=== PATIENT | female | born 1950 | race Caucasian/White ===

== ENCOUNTER 2017-03-02 12:39 | Emergency (ER) | payer MEDICARE ==
[~2017-03-02] VITALS: Ht 160 cm; Wt 88.0 kg
[2017-03-02 12:44] VITALS: BP 154/97
[2017-03-02] MEDS ORDERED: HYDROcodone/APAP 5/325 TABLET PO ONE (13:30)
[2017-03-02] MEDS ORDERED: HYDROcodone/APAP 5/325 TABLET ONE (14:28)
== END 2017-03-02 16:02 | disposition home or self-care (01) ==
LOC: ED 15:56
DX: S70.01XA Contusion of right hip, initial encounter (principal); I25.2 Old myocardial infarction; F32.9 Major depressive disorder, single episode, unspecified; Z86.73 Personal history of transient ischemic attack (TIA), and cerebral infarction without residual deficits; W01.0XXA Fall on same level from slipping, tripping and stumbling without subsequent striking against object, initial encounter; Y93.89 Activity, other specified; Y92.89 Other specified places as the place of occurrence of the external cause; Y99.8 Other external cause status
CPT/HCPCS: 99284

== ENCOUNTER 2017-11-06 16:19 | Inpatient (IN) | payer MEDICARE ==
[~2017-11-06] VITALS: Ht 157.5 cm; Wt 93.3 kg
[~2017-11-06 16:19] MED LIST: ATOR20TA PO; ATOR20TA9 PO; BUSP10TA PO; CARV3.122 PO; CELE100C PO; CLOP75TA PO; CLOP75TA52 PO; CYCL5TAB PO; ESOM40CA PO; FLUT1DIS3 INH; FURO-93 PO; LISI5TAB7 PO; METO25TA91 PO; RIVA20TA PO; TOPI25CA PO; VENL150C PO
[2017-11-06] MEDS ORDERED: SODIUM CHLORIDE FLUSH 10ML SYR IVF ONE (18:00)
[2017-11-06 18:16] LABS: BASOPHILS # (AUTO) 0.02 x10^3/uL (0-0.1); BASOPHILS % (AUTO) 0 % (0-1); EOSINOPHILS # (AUTO) 0.06 x10^3/uL (0-0.4); EOSINOPHILS % (AUTO) 1 % (1-7); LYMPHOCYTES # (AUTO) 0.82 x10^3/uL (1-3.4); LYMPHOCYTES % (AUTO) 13 % (22-44); MD NO; MEAN CORPUSCULAR HEMOGLOBIN 30.1 pg (27.0-34.8); MEAN CORPUSCULAR HGB CONC 33.1 g/dL (32.4-35.8); MEAN CORPUSCULAR VOLUME 90.9 fL (80-100); MEAN PLATELET VOLUME 8.8 fL (7.4-10.4); MONOCYTES # (AUTO) 0.35 x10^3/uL (0.2-0.8); MONOCYTES % (AUTO) 6 % (2-9); NEUTROPHILS % (AUTO) 80 % (42-75); PLATELET COUNT 249 x10^3/uL (130-400); RED BLOOD COUNT 4.73 x10^6/uL (3.82-5.3); RED CELL DISTRIBUTION WIDTH 14.1 % (9.6-15.2)
[2017-11-06 18:17] LABS: ALBUMIN 3.3 g/dL (3.4-5.0); ANION GAP 7 mmol/L (5-15); CALCIUM 8.9 mg/dL (8.5-10.1); CHLORIDE 104 mmol/L (98-107); CREATININE 1.53 mg/dL (0.55-1.02)
[2017-11-06 18:21] LABS: TROPONIN I 0.048 ng/mL (0.000-0.045)
[2017-11-06] MEDS ORDERED: k-dur (18:32)
[2017-11-06] MEDS ORDERED: VENL150C PO (18:32)
[2017-11-06] MEDS ORDERED: TRAZ100T15 PO (18:32)
[2017-11-06] MEDS ORDERED: SODIUM CHLORIDE FLUSH 10ML SYR IVF PRN (20:00)
[2017-11-06] MEDS ORDERED: hydrALAzine 20 MG/ML, 1ML IVPush PRN (20:30)
[2017-11-06] MEDS ORDERED: NITROGLYCERIN 0.4 MG BOTTLE (25 TABS) SL PRN (20:30)
[2017-11-06] MEDS ORDERED: POLYETHYLENE GLYCOL 17 GM PACKET PO PRN (20:30)
[2017-11-06] MEDS ORDERED: BISACODYL 10 MG SUPP PR PRN (20:30)
[2017-11-06] MEDS ORDERED: ACETAMINOPHEN 325 MG TABLET PO PRN (20:30)
[2017-11-06] MEDS ORDERED: NITROGLYCERIN 0.4 MG/SPRAY SL PRN (20:30)
[2017-11-06] MEDS: FAMOTIDINE 20 MG TABLET PO SCH (21:00)
[2017-11-06 22:00] VITALS: BP 139/82
[2017-11-06] MEDS ORDERED: ATORVASTATIN 20 MG TABLET PO SCH (22:30)
[2017-11-06 22:34] LABS: TROPONIN I 0.054 ng/mL (0.000-0.045)
[2017-11-06] MEDS: CARVEDILOL 3.125 MG TABLET PO SCH (22:38)
[2017-11-06] MEDS ORDERED: BUSPIRONE 10 MG TABLET PO SCH (23:00)
[2017-11-06] MEDS ORDERED: TOPIRAMATE 25 MG TABLET PO SCH (23:00)
[2017-11-06] MEDS ORDERED: TOPIRAMATE 25 MG HOMEMEDPO SCH (23:00)
[2017-11-07 01:18] VITALS: BP 111/76
[2017-11-07 05:29] LABS: BASOPHILS # (AUTO) 0.01 x10^3/uL (0-0.1); BASOPHILS % (AUTO) 0 % (0-1); EOSINOPHILS # (AUTO) 0.07 x10^3/uL (0-0.4); EOSINOPHILS % (AUTO) 1 % (1-7); LYMPHOCYTES # (AUTO) 1.58 x10^3/uL (1-3.4); LYMPHOCYTES % (AUTO) 29 % (22-44); MD NO; MEAN CORPUSCULAR HEMOGLOBIN 30.2 pg (27.0-34.8); MEAN CORPUSCULAR HGB CONC 33.2 g/dL (32.4-35.8); MEAN CORPUSCULAR VOLUME 90.7 fL (80-100); MONOCYTES # (AUTO) 0.41 x10^3/uL (0.2-0.8); MONOCYTES % (AUTO) 7 % (2-9); NEUTROPHILS # (AUTO) 3.41 x10^3/uL (1.8-6.8); NEUTROPHILS % (AUTO) 62 % (42-75); PLATELET COUNT 216 x10^3/uL (130-400); RED BLOOD COUNT 4.29 x10^6/uL (3.82-5.3); RED CELL DISTRIBUTION WIDTH 13.9 % (9.6-15.2)
[2017-11-07 05:33] LABS: CHLORIDE 104 mmol/L (98-107)
[2017-11-07 05:53] LABS: ALANINE AMINOTRANSFERASE 79 U/L (12-78); ALBUMIN 2.9 g/dL (3.4-5.0); ALKALINE PHOSPHATASE 147 U/L (45-117); ANION GAP 9 mmol/L (5-15); BILIRUBIN,TOTAL 0.5 mg/dL (0.2-1.0); CALCIUM 8.3 mg/dL (8.5-10.1); CREATININE 1.36 mg/dL (0.55-1.02); TOTAL PROTEIN 6.3 g/dL (6.4-8.2)
[2017-11-07 07:38] VITALS: BP 97/68
[2017-11-07] MEDS ORDERED: BUSPIRONE 10 MG TABLET PO SCH ×2 (09:00→09:30)
[2017-11-07] MEDS ORDERED: FUROSEMIDE 10 MG/ML ORAL SOL PO SCH (09:00)
[2017-11-07] MEDS: FLUTICASONE/VILANTEROL 100-25MCG/INH INH SCH ×2 (09:00→09:38)
[2017-11-07] MEDS: FAMOTIDINE 20 MG TABLET PO SCH (09:37)
[2017-11-07] MEDS: CARVEDILOL 3.125 MG TABLET PO SCH (09:37)
[2017-11-07] MEDS ORDERED: TOPIRAMATE 25 MG TABLET PO SCH (10:00)
[2017-11-07] MEDS ORDERED: RIVAROXABAN 20 MG TABLET PO SCH (17:00)
== END 2017-11-07 14:06 | disposition home or self-care (01) | DRG 314 ==
LOC: ED 19:37 → EDIP 20:00 → 5SO 21:24
PROVIDERS: ADMIT Hospitalist; ATTEND Hospitalist
DX: I51.81 Takotsubo syndrome (principal); J96.20 Acute and chronic respiratory failure, unspecified whether with hypoxia or hypercapnia; N17.9 Acute kidney failure, unspecified; E46 Unspecified protein-calorie malnutrition; I48.91 Unspecified atrial fibrillation; E66.9 Obesity, unspecified; E78.5 Hyperlipidemia, unspecified; I10 Essential (primary) hypertension; I25.119 Atherosclerotic heart disease of native coronary artery with unspecified angina pectoris; I25.2 Old myocardial infarction; T45.515A Adverse effect of anticoagulants, initial encounter; Z86.73 Personal history of transient ischemic attack (TIA), and cerebral infarction without residual deficits; Z95.5 Presence of coronary angioplasty implant and graft; Z68.37 Body mass index [BMI] 37.0-37.9, adult; Y92.89 Other specified places as the place of occurrence of the external cause
CPT/HCPCS: 36415; 71045; 80048; 80053; 82040; 83735; 83880; 84484; 85025; 93005; 93970; 99285

== ENCOUNTER 2017-12-07 19:34 | Emergency (ER) | payer MEDICARE ==
[~2017-12-07] VITALS: Ht 157.5 cm; Wt 90.0 kg
[~2017-12-07 19:34] MED LIST changes: +TRAZ100T15 PO; +k-dur
[2017-12-07] MEDS ORDERED: SODIUM CHLORIDE FLUSH 10ML SYR IVF ONE ×2 (20:00→22:00)
[2017-12-07 20:47] LABS: BASOPHILS # (AUTO) 0.07 x10^3/uL (0-0.1); BASOPHILS % (AUTO) 1 % (0-1); EOSINOPHILS # (AUTO) 0.01 x10^3/uL (0-0.4); EOSINOPHILS % (AUTO) 0 % (1-7); LYMPHOCYTES # (AUTO) 1.01 x10^3/uL (1-3.4); LYMPHOCYTES % (AUTO) 14 % (22-44); MD NO; MEAN CORPUSCULAR HEMOGLOBIN 30.4 pg (27.0-34.8); MEAN CORPUSCULAR VOLUME 91.9 fL (80-100); MEAN PLATELET VOLUME 8.6 fL (7.4-10.4); MONOCYTES # (AUTO) 0.47 x10^3/uL (0.2-0.8); MONOCYTES % (AUTO) 7 % (2-9); NEUTROPHILS # (AUTO) 5.66 x10^3/uL (1.8-6.8); NEUTROPHILS % (AUTO) 78 % (42-75); PLATELET COUNT 267 x10^3/uL (130-400); RED BLOOD COUNT 4.92 x10^6/uL (3.82-5.3); RED CELL DISTRIBUTION WIDTH 14.4 % (9.6-15.2)
[2017-12-07 20:55] LABS: INTERNATIONAL NORMALIZED RATIO 0.97 (0.93-1.1)
[2017-12-07 20:59] LABS: ALANINE AMINOTRANSFERASE 26 U/L (12-78); ALBUMIN 3.4 g/dL (3.4-5.0); ANION GAP 10 mmol/L (5-15); CALCIUM 9.3 mg/dL (8.5-10.1); CHLORIDE 108 mmol/L (98-107); CREATININE 1.13 mg/dL (0.55-1.02)
[2017-12-07 21:01] LABS: ALKALINE PHOSPHATASE 126 U/L (45-117); BILIRUBIN,TOTAL 0.5 mg/dL (0.2-1.0); TOTAL PROTEIN 7.2 g/dL (6.4-8.2)
[2017-12-07] MEDS ORDERED: NAPR-685 PO (21:11)
[2017-12-07] MEDS ORDERED: VENL150C6 PO (21:13)
[2017-12-07] MEDS ORDERED: SODIUM CHLORIDE 0.9% 1,000ML IVBOLUS ONE (22:00)
[2017-12-07] MEDS ORDERED: ONDANSETRON ODT 8 MG ONE (22:49)
[2017-12-07] MEDS ORDERED: MAALOX/HYOSCYAMINE/LIDOCAINE 45 ML BTL ONE (22:49)
[2017-12-07] MEDS ORDERED: MAALOX/HYOSCYAMINE/LIDOCAINE 45 ML BTL PO ONE (23:00)
[2017-12-07] MEDS ORDERED: ONDANSETRON ODT 8 MG PO ONE (23:00)
[2017-12-08 00:56] LABS: CULTURE INDICATED? NO; MICROSCOPIC NOT IND
[2017-12-08 02:00] VITALS: BP 142/86
== END 2017-12-08 02:01 | disposition home or self-care (01) ==
LOC: ED 22:20
DX: E86.0 Dehydration (principal); R19.7 Diarrhea, unspecified; E78.5 Hyperlipidemia, unspecified; E83.39 Other disorders of phosphorus metabolism; I48.91 Unspecified atrial fibrillation; R11.2 Nausea with vomiting, unspecified
CPT/HCPCS: 36415; 80053; 81003; 83690; 85025; 85610; 85730; 96360; 99284; J7030; Q0162

== ENCOUNTER 2018-02-04 12:00 | Inpatient (IN) | payer MEDICARE ==
[~2018-02-04] VITALS: Ht 157.5 cm; Wt 94.1 kg
[~2018-02-04 12:00] MED LIST changes: +NAPR-685 PO; +VENL150C6 PO
[2018-02-04] MEDS ORDERED: SODIUM CHLORIDE FLUSH 10ML SYR IVF ONE (12:30)
[2018-02-04 12:34] LABS: ALBUMIN 3.2 g/dL (3.4-5.0); ANION GAP 5 mmol/L (5-15); CALCIUM 8.5 mg/dL (8.5-10.1); CHLORIDE 114 mmol/L (98-107); CREATININE 0.94 mg/dL (0.55-1.02)
[2018-02-04] MEDS ORDERED: TRAZ50TA18 PO (13:01)
[2018-02-04] MEDS ORDERED: CYCL-259 PO (13:03)
[2018-02-04 13:04] LABS: BASOPHILS # (AUTO) 0.02 x10^3/uL (0-0.1); BASOPHILS % (AUTO) 0 % (0-1); EOSINOPHILS # (AUTO) 0.12 x10^3/uL (0-0.4); EOSINOPHILS % (AUTO) 3 % (1-7); LYMPHOCYTES # (AUTO) 1.17 x10^3/uL (1-3.4); LYMPHOCYTES % (AUTO) 25 % (22-44); MD NO; MEAN CORPUSCULAR HEMOGLOBIN 29.8 pg (27.0-34.8); MEAN CORPUSCULAR VOLUME 90.5 fL (80-100); MEAN PLATELET VOLUME 8.8 fL (7.4-10.4); MONOCYTES # (AUTO) 0.34 x10^3/uL (0.2-0.8); MONOCYTES % (AUTO) 7 % (2-9); NEUTROPHILS # (AUTO) 3.11 x10^3/uL (1.8-6.8); NEUTROPHILS % (AUTO) 65 % (42-75); PLATELET COUNT 227 x10^3/uL (130-400); RED BLOOD COUNT 4.36 x10^6/uL (3.82-5.3); RED CELL DISTRIBUTION WIDTH 14.3 % (9.6-15.2)
[2018-02-04] MEDS ORDERED: CLON0.12 PO (13:04)
[2018-02-04 13:15] LABS: PROTHROMBIN TIME 10.3 Seconds (9.6-11.5)
[2018-02-04] MEDS ORDERED: SODIUM CHLORIDE FLUSH 10ML SYR IVF PRN (13:30)
[2018-02-04 16:29] VITALS: BP 142/79
[2018-02-04] MEDS ORDERED: [UNRECOGNIZED DRUG - REMARK] XX PRN ×2 (17:00)
[2018-02-04] MEDS ORDERED: CLONAZEPAM 0.125 MG HOMEMEDPO SCH (17:00)
[2018-02-04] MEDS ORDERED: hydrALAzine 20 MG/ML, 1ML IVPush PRN (17:00)
[2018-02-04] MEDS ORDERED: RIVAROXABAN 20 MG TABLET PO SCH (17:00)
[2018-02-04] MEDS ORDERED: LABETALOL 5MG/ML, 20ML IVPush PRN (17:00)
[2018-02-04] MEDS ORDERED: ACETAMINOPHEN 325 MG TABLET PO PRN (18:00)
[2018-02-04] MEDS ORDERED: ONDANSETRON 2MG/ML, 2ML IVPush PRN (18:00)
[2018-02-04] MEDS: BUSPIRONE 10 MG TABLET PO SCH (20:49)
[2018-02-04] MEDS: CARVEDILOL 3.125 MG TABLET PO SCH (20:49)
[2018-02-04] MEDS: TOPIRAMATE 25 MG TABLET PO SCH (20:49)
[2018-02-04] MEDS: CYCLOBENZAPRINE 10 MG TABLET PO SCH (20:50)
[2018-02-04] MEDS ORDERED: ATORVASTATIN 20 MG TABLET PO SCH (21:00)
[2018-02-04] MEDS ORDERED: TRAZODONE 50MG TABLET PO PRN (21:00)
[2018-02-04 21:59] VITALS: BP 138/55
[2018-02-04 22:00] VITALS: BP 122/78
[2018-02-05 02:04] VITALS: BP 152/66
[2018-02-05 05:44] LABS: BASOPHILS # (AUTO) 0.02 x10^3/uL (0-0.1); BASOPHILS % (AUTO) 0 % (0-1); EOSINOPHILS % (AUTO) 3 % (1-7); LYMPHOCYTES # (AUTO) 1.31 x10^3/uL (1-3.4); LYMPHOCYTES % (AUTO) 32 % (22-44); MD NO; MEAN CORPUSCULAR HEMOGLOBIN 29.7 pg (27.0-34.8); MEAN CORPUSCULAR HGB CONC 32.5 g/dL (32.4-35.8); MEAN CORPUSCULAR VOLUME 91.2 fL (80-100); MEAN PLATELET VOLUME 9.3 fL (7.4-10.4); MONOCYTES # (AUTO) 0.33 x10^3/uL (0.2-0.8); MONOCYTES % (AUTO) 8 % (2-9); NEUTROPHILS # (AUTO) 2.38 x10^3/uL (1.8-6.8); NEUTROPHILS % (AUTO) 58 % (42-75); PLATELET COUNT 210 x10^3/uL (130-400); RED BLOOD COUNT 4.03 x10^6/uL (3.82-5.3); RED CELL DISTRIBUTION WIDTH 14.3 % (9.6-15.2)
[2018-02-05 06:14] LABS: CHLORIDE 112 mmol/L (98-107)
[2018-02-05 06:23] LABS: ANION GAP 9 mmol/L (5-15); CALCIUM 8.6 mg/dL (8.5-10.1); CREATININE 1.01 mg/dL (0.55-1.02)
[2018-02-05] MEDS ORDERED: PANTOPROZOLE 40MG TABLET PO SCH (09:00)
[2018-02-05] MEDS ORDERED: LISINOPRIL 5 MG TABLET PO SCH (09:00)
[2018-02-05] MEDS ORDERED: VENLAFAXINE 75 MG CAP ER PO SCH (09:00)
[2018-02-05] MEDS ORDERED: FUROSEMIDE 20 MG TABLET PO SCH (09:00)
[2018-02-05] MEDS ORDERED: POTASSIUM CHLORIDE 20 MEQ TAB.ER.PRT PO SCH (09:00)
[2018-02-05 09:30] VITALS: BP 126/76
[2018-02-05] MEDS: TOPIRAMATE 25 MG TABLET PO SCH (10:07)
[2018-02-05] MEDS: BUSPIRONE 10 MG TABLET PO SCH (10:09)
[2018-02-05] MEDS: CYCLOBENZAPRINE 10 MG TABLET PO SCH (10:09)
[2018-02-05] MEDS: CARVEDILOL 3.125 MG TABLET PO SCH (10:10)
[2018-02-05] MEDS ORDERED: ATOR-2 PO (14:21)
[2018-02-05] MEDS ORDERED: ATORVASTATIN 40 MG TABLET PO SCH (21:00)
== END 2018-02-05 15:24 | disposition home health service (06) | DRG 65 ==
LOC: ED 13:33 → EDIP 14:01 → 4WST 16:05 → DCLOUNGE 02-05 15:09
PROVIDERS: ADMIT Internal Medicine; ATTEND Internal Medicine
DX: I63.9 Cerebral infarction, unspecified (principal); J96.10 Chronic respiratory failure, unspecified whether with hypoxia or hypercapnia; I10 Essential (primary) hypertension; E78.5 Hyperlipidemia, unspecified; I25.10 Atherosclerotic heart disease of native coronary artery without angina pectoris; I48.91 Unspecified atrial fibrillation; K21.9 Gastro-esophageal reflux disease without esophagitis; F32.9 Major depressive disorder, single episode, unspecified; E66.9 Obesity, unspecified; Z99.81 Dependence on supplemental oxygen; Z86.73 Personal history of transient ischemic attack (TIA), and cerebral infarction without residual deficits; Z68.37 Body mass index [BMI] 37.0-37.9, adult; Z88.6 Allergy status to analgesic agent; Z88.0 Allergy status to penicillin; I25.2 Old myocardial infarction; Z95.5 Presence of coronary angioplasty implant and graft; Z90.710 Acquired absence of both cervix and uterus; Z90.89 Acquired absence of other organs; Z79.899 Other long term (current) drug therapy; Z81.8 Family history of other mental and behavioral disorders; Z83.49 Family history of other endocrine, nutritional and metabolic diseases
CPT/HCPCS: 36415; 70450; 70551; 80048; 82040; 85025; 85610; 85730; 93005; 99285; J2405

== ENCOUNTER 2019-01-18 14:23 | Inpatient (IN) | payer MEDICARE ==
[~2019-01-18] VITALS: Ht 157.5 cm; Wt 90.8 kg
[~2019-01-18 14:23] MED LIST changes: +ATOR-2 PO; +ATOR20TA37 PO; -ATOR20TA9 PO; +CLON0.12 PO; +CYCL-259 PO; +TRAZ-137 PO; -TRAZ100T15 PO; +TRAZ50TA66 PO
[2019-01-18 15:25] LABS: INTERNATIONAL NORMALIZED RATIO 1.02 (0.93-1.1); PROTHROMBIN TIME 10.7 Seconds (9.6-11.5)
[2019-01-18 15:28] LABS: ALBUMIN 3.3 g/dL (3.4-5.0); ANION GAP 9 mmol/L (5-15); CALCIUM 8.7 mg/dL (8.5-10.1); CHLORIDE 114 mmol/L (98-107)
[2019-01-18 15:34] LABS: ALANINE AMINOTRANSFERASE 25 U/L (12-78); ALKALINE PHOSPHATASE 102 U/L (45-117); BILIRUBIN,TOTAL 0.6 mg/dL (0.2-1.0); CREATININE 1.32 mg/dL (0.55-1.02); TOTAL PROTEIN 6.7 g/dL (6.4-8.2); TROPONIN I < 0.015 ng/mL (0.000-0.045)
[2019-01-18 15:47] LABS: BASOPHILS % (AUTO) 0 % (0-1); EOSINOPHILS # (AUTO) 0.06 x10^3/uL (0-0.4); EOSINOPHILS % (AUTO) 1 % (1-7); LYMPHOCYTES # (AUTO) 0.74 x10^3/uL (1-3.4); LYMPHOCYTES % (AUTO) 9 % (22-44); MD NO; MEAN CORPUSCULAR HEMOGLOBIN 30.2 pg (27.0-34.8); MEAN CORPUSCULAR HGB CONC 32.2 g/dL (32.4-35.8); MEAN CORPUSCULAR VOLUME 93.8 fL (80-100); MEAN PLATELET VOLUME 8.2 fL (7.4-10.4); MONOCYTES # (AUTO) 0.39 x10^3/uL (0.2-0.8); MONOCYTES % (AUTO) 5 % (2-9); NEUTROPHILS # (AUTO) 6.98 x10^3/uL (1.8-6.8); NEUTROPHILS % (AUTO) 85 % (42-75); PLATELET COUNT 172 x10^3/uL (130-400); RED BLOOD COUNT 4.36 x10^6/uL (3.82-5.3); RED CELL DISTRIBUTION WIDTH 14.3 % (9.6-15.2)
--- NOTE | 2019-01-18 16:35 | NUR ---
PT BACK TO ROOM PT ARRIVES TO ED FROM CARDIOLOGY OFFICE. PT WAS SENT OVER DUE TO HER HAVING CP AND RIGHT ARM RADIATION. PT REPORTS THAT THIS IS HER 6TH [place]. PT REPORTS THAT HER SYMPTOMS STARTED RANDOMLY AND RIGHT SIDED AND THEN RADIATED TO BACK AND RIGHT ARM. PT DENIES TRUAMA. PT REPORTS REST HELPED. PT CONNECTED TO ALL MONITORS AND CALL LIGHT IN REACH. AWATING FOR FURTHER ORDERS.
--- NOTE | 2019-01-18 16:50 | NUR ---
[facility] ATTEMPTING IV AT THIS TIME.
--- NOTE | 2019-01-18 16:59 | NUR ---
REPORT RECEIVED FROM JACQUELINE RN. ASSUMED CARE OF PT AT THIS TIME. PT CURRENLTY RESTING ON GURNEY. NAD NOTED. SKIN PWD. RESP EVEN AND UNLABORED. CALL LIGHT WITHIN REACH. WILL CONT TO MONITOR PT.
[2019-01-18] MEDS ORDERED: POLYETHYLENE GLYCOL 17 GM PACKET PO PRN (18:30)
[2019-01-18] MEDS ORDERED: BISACODYL 10 MG SUPP PR PRN (18:30)
[2019-01-18] MEDS ORDERED: NITROGLYCERIN 0.4 MG BOTTLE (25 TABS) SL PRN (18:30)
[2019-01-18] MEDS ORDERED: TRAZODONE 50MG TABLET PO PRN (18:30)
[2019-01-18] MEDS ORDERED: morphine SULFATE 10 MG/ML, 1ML IVPush PRN (18:30)
[2019-01-18] MEDS ORDERED: HEPARIN 5,000 UNITS/ML, 1ML SQ SCH (18:30)
[2019-01-18] MEDS ORDERED: ONDANSETRON ODT 4 MG PO PRN (18:30)
--- NOTE | 2019-01-18 18:37 | NUR ---
REPORT TO TERESA SHERMAN ON TELE. PT CURRENTLY RESTIN SIS ELISEO Addendum: 01/18/19 at 1837 by MILLIE REPORT TO TERESA SHERMAN ON TELE. PT CURRENTLY RESTING ON ELISEO. NAD NOTED. SKIN PWD. RESP EVEN AND UNLABORED. PT CURRENTLY DENIES PAIN AT THIS TIME. AT BEDSIDE. CALL LIGHT WITHIN REACH. WILL CONT TO MONITOR PT.
[2019-01-18] MEDS ORDERED: LORA5TAB4 PO (19:47)
[2019-01-18 19:55] VITALS: BP 133/72
[2019-01-18] MEDS ORDERED: LORA10CA PO (20:04)
[2019-01-18] MEDS ORDERED: LORATADINE 10 MG TABLET PO PRN (21:00)
[2019-01-18] MEDS: RIVAROXABAN 15 MG TABLET PO SCH (21:10)
[2019-01-18] MEDS: ATORVASTATIN 80 MG TABLET PO SCH (21:10)
[2019-01-18] MEDS: CARVEDILOL 3.125 MG TABLET PO SCH (21:11)
[2019-01-18] MEDS: BUSPIRONE 10 MG TABLET PO SCH (21:11)
[2019-01-18] MEDS: TOPIRAMATE 25 MG TABLET PO SCH (21:11)
[2019-01-18] MEDS: SODIUM CHLORIDE FLUSH 10ML SYR IVF SCH (21:17)
[2019-01-18] MEDS: CYCLOBENZAPRINE 10 MG TABLET PO SCH (21:17)
[2019-01-18 22:15] LABS: TROPONIN I < 0.015 ng/mL (0.000-0.045)
[2019-01-19 01:59] VITALS: BP 108/69
[2019-01-19 03:32] LABS: BASOPHILS # (AUTO) 0.03 x10^3/uL (0-0.1); BASOPHILS % (AUTO) 0 % (0-1); EOSINOPHILS # (AUTO) 0.04 x10^3/uL (0-0.4); EOSINOPHILS % (AUTO) 1 % (1-7); LYMPHOCYTES # (AUTO) 0.85 x10^3/uL (1-3.4); LYMPHOCYTES % (AUTO) 10 % (22-44); MD NO; MEAN CORPUSCULAR HEMOGLOBIN 29.9 pg (27.0-34.8); MEAN CORPUSCULAR HGB CONC 31.9 g/dL (32.4-35.8); MEAN CORPUSCULAR VOLUME 93.8 fL (80-100); MONOCYTES # (AUTO) 0.47 x10^3/uL (0.2-0.8); MONOCYTES % (AUTO) 6 % (2-9); NEUTROPHILS # (AUTO) 7.08 x10^3/uL (1.8-6.8); NEUTROPHILS % (AUTO) 84 % (42-75); PLATELET COUNT 188 x10^3/uL (130-400); RED CELL DISTRIBUTION WIDTH 14.1 % (9.6-15.2)
[2019-01-19 03:45] LABS: ALANINE AMINOTRANSFERASE 25 U/L (12-78); ANION GAP 9 mmol/L (5-15); CALCIUM 8.6 mg/dL (8.5-10.1); CHLORIDE 113 mmol/L (98-107); CREATININE 1.15 mg/dL (0.55-1.02)
[2019-01-19 03:49] LABS: ALKALINE PHOSPHATASE 106 U/L (45-117); BILIRUBIN,TOTAL 0.6 mg/dL (0.2-1.0); TOTAL PROTEIN 5.9 g/dL (6.4-8.2); TROPONIN I < 0.015 ng/mL (0.000-0.045)
[2019-01-19] MEDS ORDERED: ALBUTEROL SULFATE 2.5 MG/3 ML ONE (05:22)
[2019-01-19] MEDS ORDERED: ALBUTEROL SULFATE 2.5 MG/3 ML NPPB PRN (05:30)
[2019-01-19] MEDS ORDERED: PANTOPROZOLE 40MG TABLET PO SCH (06:00)
[2019-01-19 07:45] VITALS: BP 106/72
[2019-01-19] MEDS: VENLAFAXINE 75 MG CAP ER PO SCH (08:40)
[2019-01-19] MEDS: CARVEDILOL 3.125 MG TABLET PO SCH ×2 (08:40→20:29)
[2019-01-19] MEDS: BUSPIRONE 10 MG TABLET PO SCH ×2 (08:40→20:29)
[2019-01-19] MEDS: FUROSEMIDE 20 MG TABLET PO SCH (08:40)
[2019-01-19] MEDS: POTASSIUM CHLORIDE 20 MEQ TAB.ER.PRT PO SCH (08:40)
[2019-01-19] MEDS ORDERED: REGADENOSON 0.4 MG/5 ML SYRINGE ONE (08:41)
[2019-01-19] MEDS: CYCLOBENZAPRINE 10 MG TABLET PO SCH ×3 (08:41→20:30)
[2019-01-19] MEDS: LISINOPRIL 5 MG TABLET PO SCH (08:41)
[2019-01-19] MEDS: SODIUM CHLORIDE FLUSH 10ML SYR IVF SCH ×2 (08:41→20:29)
[2019-01-19] MEDS: SENNA/DOCUSATE TABLET PO SCH (08:41)
[2019-01-19] MEDS: TOPIRAMATE 25 MG TABLET PO SCH ×2 (08:47→20:31)
[2019-01-19] MEDS ORDERED: FUROSEMIDE 20 MG/2 ML IV ONE (13:30)
[2019-01-19 14:00] VITALS: BP 104/70
[2019-01-19] MEDS ORDERED: CALCIUM CARBONATE 500 MG TAB.CHEW PO PRN (14:00)
[2019-01-19] MEDS ORDERED: MAALOX/HYOSCYAMINE/LIDOCAINE 45 ML BTL PO PRN (14:00)
[2019-01-19] MEDS: GUAIFENESIN 200 MG TABLET PO SCH ×2 (16:28→20:31)
[2019-01-19] MEDS: RIVAROXABAN 15 MG TABLET PO SCH (17:27)
[2019-01-19 19:32] VITALS: BP 106/67
[2019-01-19] MEDS: ATORVASTATIN 80 MG TABLET PO SCH (20:30)
[2019-01-19] MEDS: PANTOPROZOLE 40MG TABLET PO SCH (20:31)
[2019-01-20 01:37] VITALS: BP 100/67
[2019-01-20] MEDS: GUAIFENESIN 200 MG TABLET PO SCH (05:43)
[2019-01-20 06:25] LABS: ANION GAP 7 mmol/L (5-15); CALCIUM 8.8 mg/dL (8.5-10.1); CHLORIDE 109 mmol/L (98-107); CREATININE 1.26 mg/dL (0.55-1.02)
[2019-01-20 06:28] LABS: BASOPHILS # (AUTO) 0.02 x10^3/uL (0-0.1); BASOPHILS % (AUTO) 0 % (0-1); EOSINOPHILS # (AUTO) 0.14 x10^3/uL (0-0.4); EOSINOPHILS % (AUTO) 2 % (1-7); LYMPHOCYTES % (AUTO) 11 % (22-44); MD NO; MEAN CORPUSCULAR HEMOGLOBIN 29.4 pg (27.0-34.8); MEAN CORPUSCULAR HGB CONC 31.9 g/dL (32.4-35.8); MEAN CORPUSCULAR VOLUME 92.1 fL (80-100); MEAN PLATELET VOLUME 7.8 fL (7.4-10.4); MONOCYTES # (AUTO) 0.37 x10^3/uL (0.2-0.8); MONOCYTES % (AUTO) 6 % (2-9); NEUTROPHILS # (AUTO) 4.92 x10^3/uL (1.8-6.8); NEUTROPHILS % (AUTO) 80 % (42-75); PLATELET COUNT 158 x10^3/uL (130-400); RED BLOOD COUNT 3.98 x10^6/uL (3.82-5.3); RED CELL DISTRIBUTION WIDTH 14.2 % (9.6-15.2)
[2019-01-20 08:13] VITALS: BP 112/70
[2019-01-20] MEDS: VENLAFAXINE 75 MG CAP ER PO SCH (08:20)
[2019-01-20] MEDS: PANTOPROZOLE 40MG TABLET PO SCH ×2 (08:21→20:02)
[2019-01-20] MEDS: CARVEDILOL 3.125 MG TABLET PO SCH ×2 (08:24→20:03)
[2019-01-20] MEDS: TOPIRAMATE 25 MG TABLET PO SCH ×2 (08:24→20:03)
[2019-01-20] MEDS: BUSPIRONE 10 MG TABLET PO SCH ×2 (08:25→20:02)
[2019-01-20] MEDS: FUROSEMIDE 20 MG TABLET PO SCH (08:25)
[2019-01-20] MEDS: SODIUM CHLORIDE FLUSH 10ML SYR IVF SCH ×2 (08:25→20:03)
[2019-01-20] MEDS: CYCLOBENZAPRINE 10 MG TABLET PO SCH ×3 (08:25→20:01)
[2019-01-20] MEDS: LORATADINE 10 MG TABLET PO SCH (08:25)
[2019-01-20] MEDS: POTASSIUM CHLORIDE 20 MEQ TAB.ER.PRT PO SCH (08:25)
[2019-01-20] MEDS: LISINOPRIL 5 MG TABLET PO SCH (08:25)
[2019-01-20] MEDS: SENNA/DOCUSATE TABLET PO SCH (08:26)
[2019-01-20] MEDS: SODIUM CHLORIDE NASAL SPRAY 45ML BOTTLE NAS SCH ×2 (10:07→20:03)
[2019-01-20] MEDS: FLUTICASONE NASAL SPRAY 16GM NAS SCH ×2 (10:07→20:03)
[2019-01-20] MEDS: GUAIFENESIN ER 600 MG TABLET PO SCH ×2 (10:07→20:03)
[2019-01-20] MEDS: ACETAMINOPHEN 325 MG TABLET PO PRN (10:10)
[2019-01-20 14:12] VITALS: BP 103/69
[2019-01-20 18:44] VITALS: BP 98/63
[2019-01-20] MEDS: ATORVASTATIN 80 MG TABLET PO SCH (20:03)
[2019-01-20] MEDS: RIVAROXABAN 15 MG TABLET PO SCH (20:03)
[2019-01-20] MEDS: DOXYCYCLINE 100MG TABLET PO SCH (20:04)
[2019-01-21 01:46] VITALS: BP 107/69
[2019-01-21 06:00] LABS: BASOPHILS % (AUTO) 0 % (0-1); EOSINOPHILS # (AUTO) 0.01 x10^3/uL (0-0.4); EOSINOPHILS % (AUTO) 0 % (1-7); LYMPHOCYTES # (AUTO) 0.69 x10^3/uL (1-3.4); LYMPHOCYTES % (AUTO) 11 % (22-44); MD NO; MEAN CORPUSCULAR HEMOGLOBIN 30.5 pg (27.0-34.8); MEAN CORPUSCULAR HGB CONC 32.3 g/dL (32.4-35.8); MEAN CORPUSCULAR VOLUME 94.3 fL (80-100); MEAN PLATELET VOLUME 8.6 fL (7.4-10.4); MONOCYTES # (AUTO) 0.37 x10^3/uL (0.2-0.8); MONOCYTES % (AUTO) 6 % (2-9); NEUTROPHILS # (AUTO) 5.05 x10^3/uL (1.8-6.8); NEUTROPHILS % (AUTO) 83 % (42-75); PLATELET COUNT 209 x10^3/uL (130-400); RED BLOOD COUNT 3.95 x10^6/uL (3.82-5.3); RED CELL DISTRIBUTION WIDTH 13.8 % (9.6-15.2)
[2019-01-21 06:06] LABS: CHLORIDE 108 mmol/L (98-107)
[2019-01-21 06:12] LABS: ANION GAP 8 mmol/L (5-15); CALCIUM 8.8 mg/dL (8.5-10.1); CREATININE 1.31 mg/dL (0.55-1.02)
[2019-01-21 07:48] VITALS: BP 114/78
[2019-01-21] MEDS: SENNA/DOCUSATE TABLET PO SCH (08:11)
[2019-01-21] MEDS: CARVEDILOL 3.125 MG TABLET PO SCH ×2 (08:12→21:39)
[2019-01-21] MEDS: LISINOPRIL 5 MG TABLET PO SCH (08:12)
[2019-01-21] MEDS: TOPIRAMATE 25 MG TABLET PO SCH ×2 (08:12→21:39)
[2019-01-21] MEDS: POTASSIUM CHLORIDE 20 MEQ TAB.ER.PRT PO SCH (08:12)
[2019-01-21] MEDS: FUROSEMIDE 20 MG TABLET PO SCH (08:12)
[2019-01-21] MEDS: LORATADINE 10 MG TABLET PO SCH (08:13)
[2019-01-21] MEDS: VENLAFAXINE 75 MG CAP ER PO SCH (08:13)
[2019-01-21] MEDS: DOXYCYCLINE 100MG TABLET PO SCH ×2 (08:13→21:39)
[2019-01-21] MEDS: PANTOPROZOLE 40MG TABLET PO SCH ×2 (08:13→21:39)
[2019-01-21] MEDS: BUSPIRONE 10 MG TABLET PO SCH ×2 (08:13→21:39)
[2019-01-21] MEDS: GUAIFENESIN ER 600 MG TABLET PO SCH ×2 (08:13→21:39)
[2019-01-21] MEDS: FLUTICASONE NASAL SPRAY 16GM NAS SCH ×2 (08:15→21:40)
[2019-01-21] MEDS: SODIUM CHLORIDE NASAL SPRAY 45ML BOTTLE NAS SCH ×2 (08:16→21:40)
[2019-01-21] MEDS: SODIUM CHLORIDE FLUSH 10ML SYR IVF SCH ×2 (08:17→21:39)
[2019-01-21] MEDS: CYCLOBENZAPRINE 10 MG TABLET PO SCH ×3 (08:18→17:27)
[2019-01-21] MEDS: methylPREDNISolone SOD SUCC 40 MG/ML IV SCH ×2 (12:17→21:39)
[2019-01-21 14:40] VITALS: BP 96/60
[2019-01-21] MEDS: RIVAROXABAN 15 MG TABLET PO SCH (17:28)
[2019-01-21 18:50] VITALS: BP 104/66
[2019-01-21] MEDS: ATORVASTATIN 80 MG TABLET PO SCH (21:39)
[2019-01-22 01:22] VITALS: BP 120/73
[2019-01-22] MEDS: methylPREDNISolone SOD SUCC 40 MG/ML IV SCH (05:43)
[2019-01-22] MEDS: GUAIFENESIN 200 MG TABLET PO SCH ×5 (07:30→20:14)
[2019-01-22] MEDS: SENNA/DOCUSATE TABLET PO SCH (08:31)
[2019-01-22] MEDS: BUSPIRONE 10 MG TABLET PO SCH ×2 (08:31→20:14)
[2019-01-22] MEDS: POTASSIUM CHLORIDE 20 MEQ TAB.ER.PRT PO SCH (08:31)
[2019-01-22] MEDS: LORATADINE 10 MG TABLET PO SCH (08:31)
[2019-01-22] MEDS: VENLAFAXINE 75 MG CAP ER PO SCH (08:31)
[2019-01-22] MEDS: PANTOPROZOLE 40MG TABLET PO SCH ×2 (08:31→20:14)
[2019-01-22] MEDS: TOPIRAMATE 25 MG TABLET PO SCH ×2 (08:31→20:15)
[2019-01-22] MEDS: CARVEDILOL 3.125 MG TABLET PO SCH ×2 (08:32→20:14)
[2019-01-22] MEDS: CYCLOBENZAPRINE 10 MG TABLET PO SCH ×3 (08:32→20:15)
[2019-01-22] MEDS: GUAIFENESIN ER 600 MG TABLET PO SCH (08:32)
[2019-01-22] MEDS: DOXYCYCLINE 100MG TABLET PO SCH ×2 (08:33→20:14)
[2019-01-22] MEDS: LISINOPRIL 5 MG TABLET PO SCH (08:34)
[2019-01-22] MEDS: SODIUM CHLORIDE NASAL SPRAY 45ML BOTTLE NAS SCH ×2 (08:34→20:16)
[2019-01-22] MEDS: FLUTICASONE NASAL SPRAY 16GM NAS SCH ×2 (08:34→20:15)
[2019-01-22] MEDS: FUROSEMIDE 20 MG TABLET PO SCH (08:36)
[2019-01-22] MEDS: SODIUM CHLORIDE FLUSH 10ML SYR IVF SCH ×2 (08:40→20:15)
[2019-01-22 09:24] VITALS: BP 124/81
[2019-01-22] MEDS: methylPREDNISolone SOD SUCC 125 MG/2 ML IVPush SCH ×3 (11:23→22:07)
[2019-01-22 15:17] VITALS: BP 116/75
[2019-01-22] MEDS: RIVAROXABAN 15 MG TABLET PO SCH (17:19)
[2019-01-22 18:11] VITALS: BP 94/66
[2019-01-22] MEDS: ATORVASTATIN 80 MG TABLET PO SCH (20:15)
[2019-01-23 01:42] VITALS: BP 110/72
[2019-01-23] MEDS: methylPREDNISolone SOD SUCC 125 MG/2 ML IVPush SCH ×3 (05:03→17:35)
[2019-01-23] MEDS: GUAIFENESIN 200 MG TABLET PO SCH ×4 (05:03→21:13)
[2019-01-23 06:25] LABS: ANION GAP 8 mmol/L (5-15); CALCIUM 8.8 mg/dL (8.5-10.1); CHLORIDE 106 mmol/L (98-107)
[2019-01-23 06:30] LABS: ALANINE AMINOTRANSFERASE 41 U/L (12-78); ALKALINE PHOSPHATASE 136 U/L (45-117); BILIRUBIN,TOTAL 0.4 mg/dL (0.2-1.0); CREATININE 1.48 mg/dL (0.55-1.02); TOTAL PROTEIN 6.7 g/dL (6.4-8.2)
[2019-01-23 06:59] VITALS: BP 102/69
[2019-01-23] MEDS: ACETAMINOPHEN 325 MG TABLET PO PRN (09:28)
[2019-01-23] MEDS: FLUTICASONE NASAL SPRAY 16GM NAS SCH ×2 (09:28→21:12)
[2019-01-23] MEDS: SODIUM CHLORIDE NASAL SPRAY 45ML BOTTLE NAS SCH ×2 (09:29→21:13)
[2019-01-23] MEDS: SODIUM CHLORIDE FLUSH 10ML SYR IVF SCH ×2 (09:29→21:14)
[2019-01-23] MEDS: SENNA/DOCUSATE TABLET PO SCH (09:30)
[2019-01-23] MEDS: LORATADINE 10 MG TABLET PO SCH (09:31)
[2019-01-23] MEDS: BUSPIRONE 10 MG TABLET PO SCH ×2 (09:31→21:13)
[2019-01-23] MEDS: DOXYCYCLINE 100MG TABLET PO SCH ×2 (09:31→21:13)
[2019-01-23] MEDS: CARVEDILOL 3.125 MG TABLET PO SCH ×2 (09:31→21:13)
[2019-01-23] MEDS: VENLAFAXINE 75 MG CAP ER PO SCH (09:32)
[2019-01-23] MEDS: POTASSIUM CHLORIDE 20 MEQ TAB.ER.PRT PO SCH (09:32)
[2019-01-23] MEDS: PANTOPROZOLE 40MG TABLET PO SCH ×2 (09:32→21:13)
[2019-01-23] MEDS: TOPIRAMATE 25 MG TABLET PO SCH ×2 (09:32→21:14)
[2019-01-23] MEDS: CYCLOBENZAPRINE 10 MG TABLET PO SCH ×3 (09:33→21:13)
[2019-01-23 12:15] VITALS: BP 102/67
[2019-01-23] MEDS: RIVAROXABAN 15 MG TABLET PO SCH (17:41)
[2019-01-23 19:03] VITALS: BP 110/68
[2019-01-23] MEDS: ATORVASTATIN 80 MG TABLET PO SCH (21:14)
[2019-01-24] MEDS: methylPREDNISolone SOD SUCC 125 MG/2 ML IVPush SCH ×3 (00:27→17:32)
[2019-01-24 01:08] VITALS: BP 106/68
[2019-01-24 05:47] LABS: ANION GAP 4 mmol/L (5-15); CALCIUM 8.6 mg/dL (8.5-10.1); CHLORIDE 107 mmol/L (98-107); CREATININE 1.24 mg/dL (0.55-1.02)
[2019-01-24] MEDS: GUAIFENESIN 200 MG TABLET PO SCH ×4 (05:53→22:43)
[2019-01-24 06:27] VITALS: BP 132/78
[2019-01-24] MEDS: SODIUM CHLORIDE FLUSH 10ML SYR IVF SCH ×2 (07:46→22:38)
[2019-01-24] MEDS: SENNA/DOCUSATE TABLET PO SCH (07:47)
[2019-01-24] MEDS: BUSPIRONE 10 MG TABLET PO SCH ×2 (07:48→22:47)
[2019-01-24] MEDS: CARVEDILOL 3.125 MG TABLET PO SCH ×2 (07:48→22:40)
[2019-01-24] MEDS: VENLAFAXINE 75 MG CAP ER PO SCH (07:49)
[2019-01-24] MEDS: POTASSIUM CHLORIDE 20 MEQ TAB.ER.PRT PO SCH (07:49)
[2019-01-24] MEDS: DOXYCYCLINE 100MG TABLET PO SCH ×2 (07:50→22:41)
[2019-01-24] MEDS: TOPIRAMATE 25 MG TABLET PO SCH ×2 (07:50→22:43)
[2019-01-24] MEDS: PANTOPROZOLE 40MG TABLET PO SCH ×2 (07:51→22:43)
[2019-01-24] MEDS: CYCLOBENZAPRINE 10 MG TABLET PO SCH ×3 (07:51→22:42)
[2019-01-24] MEDS: LORATADINE 10 MG TABLET PO SCH (07:51)
[2019-01-24] MEDS: ALBUTEROL/IPRATROPIUM 2.5MG/0.5MG, 3 ML HHN SCH ×3 (08:00→18:59)
[2019-01-24] MEDS: SODIUM CHLORIDE NASAL SPRAY 45ML BOTTLE NAS SCH ×2 (08:00→22:39)
[2019-01-24] MEDS: FLUTICASONE NASAL SPRAY 16GM NAS SCH ×2 (08:00→22:39)
[2019-01-24 12:10] VITALS: BP 113/72
[2019-01-24] MEDS: RIVAROXABAN 15 MG TABLET PO SCH (17:31)
[2019-01-24 19:08] VITALS: BP 105/68
[2019-01-24] MEDS: ATORVASTATIN 80 MG TABLET PO SCH (22:41)
[2019-01-25 02:14] VITALS: BP 92/59
[2019-01-25] MEDS: ALBUTEROL/IPRATROPIUM 2.5MG/0.5MG, 3 ML HHN SCH ×3 (02:30→14:00)
[2019-01-25] MEDS: GUAIFENESIN 200 MG TABLET PO SCH ×2 (05:21→11:38)
[2019-01-25] MEDS: methylPREDNISolone SOD SUCC 125 MG/2 ML IVPush SCH (05:21)
[2019-01-25 05:36] LABS: BASOPHILS # (AUTO) 0.01 x10^3/uL (0-0.1); BASOPHILS % (AUTO) 0 % (0-1); EOSINOPHILS % (AUTO) 0 % (1-7); LYMPHOCYTES # (AUTO) 0.74 x10^3/uL (1-3.4); LYMPHOCYTES % (AUTO) 9 % (22-44); MD NO; MEAN CORPUSCULAR HEMOGLOBIN 29.4 pg (27.0-34.8); MEAN CORPUSCULAR HGB CONC 31.9 g/dL (32.4-35.8); MEAN PLATELET VOLUME 8.2 fL (7.4-10.4); MONOCYTES # (AUTO) 0.53 x10^3/uL (0.2-0.8); MONOCYTES % (AUTO) 7 % (2-9); NEUTROPHILS # (AUTO) 6.72 x10^3/uL (1.8-6.8); NEUTROPHILS % (AUTO) 84 % (42-75); PLATELET COUNT 243 x10^3/uL (130-400); RED BLOOD COUNT 4.32 x10^6/uL (3.82-5.3); RED CELL DISTRIBUTION WIDTH 13.4 % (9.6-15.2)
[2019-01-25 05:42] LABS: ALANINE AMINOTRANSFERASE 40 U/L (12-78); ALBUMIN 2.8 g/dL (3.4-5.0); ANION GAP 5 mmol/L (5-15); CALCIUM 8.4 mg/dL (8.5-10.1); CHLORIDE 107 mmol/L (98-107); CREATININE 1.24 mg/dL (0.55-1.02)
[2019-01-25 05:44] LABS: ALKALINE PHOSPHATASE 109 U/L (45-117); BILIRUBIN,TOTAL 0.4 mg/dL (0.2-1.0); TOTAL PROTEIN 5.9 g/dL (6.4-8.2)
[2019-01-25 06:42] VITALS: BP 117/70
[2019-01-25 09:50] VITALS: BP 112/73
[2019-01-25] MEDS: SODIUM CHLORIDE FLUSH 10ML SYR IVF SCH (09:54)
[2019-01-25] MEDS: FLUTICASONE NASAL SPRAY 16GM NAS SCH (09:54)
[2019-01-25] MEDS: BUSPIRONE 10 MG TABLET PO SCH (09:55)
[2019-01-25] MEDS: SODIUM CHLORIDE NASAL SPRAY 45ML BOTTLE NAS SCH (09:55)
[2019-01-25] MEDS: CYCLOBENZAPRINE 10 MG TABLET PO SCH (09:56)
[2019-01-25] MEDS: VENLAFAXINE 75 MG CAP ER PO SCH (09:56)
[2019-01-25] MEDS: CARVEDILOL 3.125 MG TABLET PO SCH (09:56)
[2019-01-25] MEDS: LORATADINE 10 MG TABLET PO SCH (09:56)
[2019-01-25] MEDS: TOPIRAMATE 25 MG TABLET PO SCH (09:57)
[2019-01-25] MEDS: POTASSIUM CHLORIDE 20 MEQ TAB.ER.PRT PO SCH (09:57)
[2019-01-25] MEDS: PANTOPROZOLE 40MG TABLET PO SCH (09:57)
[2019-01-25] MEDS: SENNA/DOCUSATE TABLET PO SCH (09:57)
[2019-01-25] MEDS: DOXYCYCLINE 100MG TABLET PO SCH (09:57)
[2019-01-25 12:05] VITALS: BP 112/70
[2019-01-25] MEDS ORDERED: DOXY100T PO (15:11)
[2019-01-25] MEDS ORDERED: ALBU90AE INH (15:11)
[2019-01-25] MEDS ORDERED: GUAI200T3 PO (15:11)
[2019-01-25] MEDS ORDERED: TIOT18CA INH (15:11)
[2019-01-25] MEDS ORDERED: BUDE10.2 INH (15:11)
[2019-01-25] MEDS ORDERED: PRED20TA PO (15:12)
== END 2019-01-25 16:18 | disposition home or self-care (01) | DRG 291 ==
LOC: ED 16:44 → EDIP 17:18 → 5SO 20:03 → 3NE 01-20 17:25 → DCLOUNGE 01-25 16:10
PROVIDERS: ADMIT Internal Medicine; ATTEND Internal Medicine
DX: I13.0 Hypertensive heart and chronic kidney disease with heart failure and stage 1 through stage 4 chronic kidney disease, or unspecified chronic kidney disease (principal); J96.21 Acute and chronic respiratory failure with hypoxia; I50.43 Acute on chronic combined systolic (congestive) and diastolic (congestive) heart failure; D68.69 Other thrombophilia; I69.351 Hemiplegia and hemiparesis following cerebral infarction affecting right dominant side; N17.9 Acute kidney failure, unspecified; J44.0 Chronic obstructive pulmonary disease with (acute) lower respiratory infection; J44.1 Chronic obstructive pulmonary disease with (acute) exacerbation; I25.10 Atherosclerotic heart disease of native coronary artery without angina pectoris; I48.2 Chronic atrial fibrillation; Z88.6 Allergy status to analgesic agent; Z88.0 Allergy status to penicillin; E66.9 Obesity, unspecified; Z68.36 Body mass index [BMI] 36.0-36.9, adult; E78.5 Hyperlipidemia, unspecified; I69.320 Aphasia following cerebral infarction; J20.9 Acute bronchitis, unspecified; J30.9 Allergic rhinitis, unspecified; Z82.3 Family history of stroke; Z82.49 Family history of ischemic heart disease and other diseases of the circulatory system; K21.9 Gastro-esophageal reflux disease without esophagitis; Z90.710 Acquired absence of both cervix and uterus; Z99.81 Dependence on supplemental oxygen; Z90.49 Acquired absence of other specified parts of digestive tract; K11.7 Disturbances of salivary secretion; I25.2 Old myocardial infarction; N18.3 Chronic kidney disease, stage 3 (moderate)
CPT/HCPCS: 0399T; 36415; 71045; 71250; 78452; 80048; 80053; 84484; 85025; 85610; 87070; 87205; 93005; 93017; 93306; 94640; 99285; G0378; J2785; J7620; A9502; C9898; J1940; J2920; J2930; J7512

== ENCOUNTER 2019-12-12 14:34 | Emergency (ER) | payer MEDICARE ==
[~2019-12-12] VITALS: Ht 167.6 cm; Wt 113.6 kg
[~2019-12-12 14:34] MED LIST changes: +ALBU90AE INH; +BUDE10.2 INH; +DOXY100T PO; +GUAI200T37 PO; +LORA10CA PO; +LORA5TAB4 PO; +PRED20TA PO; +TIOT18CA INH; -TOPI25CA PO; +TOPI25CA3 PO; -TRAZ-137 PO; +TRAZ-175 PO
[2019-12-12 15:11] LABS: BASOPHILS # (AUTO) 0.02 x10^3/uL (0-0.1); BASOPHILS % (AUTO) 0 % (0-1); EOSINOPHILS # (AUTO) 0.04 x10^3/uL (0-0.4); EOSINOPHILS % (AUTO) 1 % (1-7); LYMPHOCYTES % (AUTO) 13 % (22-44); MD NO; MEAN CORPUSCULAR HEMOGLOBIN 29.8 pg (27.0-34.8); MEAN CORPUSCULAR HGB CONC 32.7 g/dL (32.4-35.8); MEAN CORPUSCULAR VOLUME 91.1 fL (80-100); MEAN PLATELET VOLUME 8.5 fL (7.4-10.4); MONOCYTES # (AUTO) 0.38 x10^3/uL (0.2-0.8); MONOCYTES % (AUTO) 5 % (2-9); NEUTROPHILS # (AUTO) 5.78 x10^3/uL (1.8-6.8); NEUTROPHILS % (AUTO) 81 % (42-75); PLATELET COUNT 203 x10^3/uL (130-400); RED BLOOD COUNT 4.44 x10^6/uL (3.82-5.3)
--- NOTE | 2019-12-12 15:16 | NUR ---
Pt to room 22 per [facility]. Pt was at the doctor's office today, went to the wrong floor, and when going back to elevator felt a little faint, and slowly slid down the wall. Pt states she falls like this everyday when she gets up to walk. Pt placed in gown, monitor applied, call light given and PA in to assess. remains at bedside.
[2019-12-12 15:22] LABS: ALANINE AMINOTRANSFERASE 23 U/L (12-78); ALBUMIN 3.3 g/dL (3.4-5.0); ANION GAP 8 mmol/L (5-15); CHLORIDE 108 mmol/L (98-107); CREATININE 1.88 mg/dL (0.55-1.02)
[2019-12-12 15:27] LABS: ALKALINE PHOSPHATASE 112 U/L (45-117); BILIRUBIN,TOTAL 0.6 mg/dL (0.2-1.0); TOTAL PROTEIN 6.8 g/dL (6.4-8.2); TROPONIN I < 0.015 ng/mL (0.000-0.045)
--- NOTE | 2019-12-12 16:31 | NUR ---
Discharge instructions given to patient. Pt verbalizes understanding of all instructions and follow up. Pt informed to call her phy therapist to reschedule due to missed appointment today. Pt ambulated out of ED with cane assistance and RN stand by.
[2019-12-12 16:33] VITALS: BP 100/58
== END 2019-12-12 16:35 | disposition home or self-care (01) ==
LOC: ED 15:33
DX: R55 Syncope and collapse (principal); I10 Essential (primary) hypertension; I48.91 Unspecified atrial fibrillation; I25.2 Old myocardial infarction; Z86.73 Personal history of transient ischemic attack (TIA), and cerebral infarction without residual deficits
CPT/HCPCS: 36415; 71045; 80053; 83880; 84484; 85025; 93005; 99285

== ENCOUNTER 2020-06-12 18:15 | Observation (INO) | payer MEDICARE ==
[~2020-06-12] VITALS: Ht 154.9 cm; Wt 84.6 kg
[2020-06-12 19:02] LABS: BASOPHILS % (AUTO) 1 % (0-1); EOSINOPHILS % (AUTO) 3 % (1-7); LYMPHOCYTES % (AUTO) 17 % (22-44); MEAN CORPUSCULAR HEMOGLOBIN 29.3 pg (27.0-34.8); MEAN CORPUSCULAR HGB CONC 32.1 g/dL (32.4-35.8); MEAN PLATELET VOLUME 8.4 fL (7.4-10.4); MONOCYTES % (AUTO) 8 % (2-9); NEUTROPHILS % (AUTO) 71 % (42-75); PLATELET COUNT 217 x10^3/uL (130-400); RED BLOOD COUNT 4.19 x10^6/uL (3.82-5.3); RED CELL DISTRIBUTION WIDTH 14.3 % (9.6-15.2)
[2020-06-12 19:04] LABS: MD NO
[2020-06-12 19:13] LABS: ALANINE AMINOTRANSFERASE 25 U/L (12-78); ALBUMIN 3.1 g/dL (3.4-5.0); ANION GAP 4 mmol/L (5-15); CALCIUM 8.6 mg/dL (8.5-10.1); CHLORIDE 111 mmol/L (98-107); CREATININE 1.85 mg/dL (0.55-1.02)
[2020-06-12 19:17] LABS: ALKALINE PHOSPHATASE 134 U/L (45-117); BILIRUBIN,TOTAL 0.4 mg/dL (0.2-1.0); TOTAL PROTEIN 6.7 g/dL (6.4-8.2); TROPONIN I < 0.015 ng/mL (0.000-0.045)
--- NOTE | 2020-06-12 21:29 | NUR ---
REPORT FROM TERESA REYNAGA. ERP TO BEDSIDE AT THIS TIME.
[2020-06-12] MEDS ORDERED: MAALOX/HYOSCYAMINE/LIDOCAINE 45 ML BTL PO ONE (21:30)
[2020-06-12] MEDS ORDERED: MAALOX/HYOSCYAMINE/LIDOCAINE 45 ML BTL ONE (21:33)
--- NOTE | 2020-06-12 22:02 | NUR ---
[facility] TO BEDSIDE, PT INTERACTING APPROPRIATELY.
--- NOTE | 2020-06-12 22:11 | NUR ---
REPORT GIVEN TO TERESA BRAVO.
[2020-06-12 22:50] VITALS: BP 162/98
[2020-06-12] MEDS ORDERED: DOCUSATE 100 MG CAPSULE PO PRN (23:00)
[2020-06-12] MEDS ORDERED: CLONAZEPAM 0.125 MG PO SCH (23:00)
[2020-06-12] MEDS ORDERED: MELATONIN 5 MG TABLET PO PRN (23:00)
[2020-06-12] MEDS ORDERED: ACETAMINOPHEN 325 MG TABLET PO PRN (23:00)
[2020-06-12] MEDS ORDERED: ATORVASTATIN 80 MG TABLET PO SCH (23:00)
[2020-06-12] MEDS ORDERED: NITROGLYCERIN 0.4 MG BOTTLE (25 TABS) SL PRN (23:00)
[2020-06-12] MEDS ORDERED: LIDODERM 5% PATCH TD PRN (23:00)
[2020-06-12] MEDS ORDERED: TRAZODONE 50MG TABLET PO SCH (23:00)
[2020-06-12] MEDS: CARVEDILOL 3.125 MG TABLET PO SCH (23:15)
[2020-06-12] MEDS: BUSPIRONE 10 MG TABLET PO SCH (23:15)
[2020-06-12] MEDS: TOPIRAMATE 25 MG TABLET PO SCH (23:15)
[2020-06-13 01:34] LABS: TROPONIN I 0.065 ng/mL (0.000-0.045)
[2020-06-13 02:16] VITALS: BP 131/85
[2020-06-13] MEDS: CLONAZEPAM MC SCH ×3 (02:30→16:56)
[2020-06-13] MEDS ORDERED: PANTOPRAZOLE 40MG TABLET PO SCH (06:00)
[2020-06-13 07:29] VITALS: BP 121/80
[2020-06-13 07:31] LABS: BASOPHILS % (AUTO) 1 % (0-1); EOSINOPHILS % (AUTO) 4 % (1-7); LYMPHOCYTES % (AUTO) 29 % (22-44); MEAN CORPUSCULAR HEMOGLOBIN 29.6 pg (27.0-34.8); MEAN CORPUSCULAR HGB CONC 32.2 g/dL (32.4-35.8); MEAN PLATELET VOLUME 8.2 fL (7.4-10.4); MONOCYTES % (AUTO) 9 % (2-9); NEUTROPHILS % (AUTO) 57 % (42-75); PLATELET COUNT 192 x10^3/uL (130-400); RED BLOOD COUNT 3.82 x10^6/uL (3.82-5.3); RED CELL DISTRIBUTION WIDTH 14.1 % (9.6-15.2)
[2020-06-13 07:35] LABS: MD NO
[2020-06-13 07:36] LABS: ANION GAP 2 mmol/L (5-15); CALCIUM 8.4 mg/dL (8.5-10.1); CHLORIDE 112 mmol/L (98-107); CREATININE 1.56 mg/dL (0.55-1.02)
[2020-06-13] MEDS: CARVEDILOL 3.125 MG TABLET PO SCH (08:12)
[2020-06-13] MEDS: BUSPIRONE 10 MG TABLET PO SCH (08:21)
[2020-06-13] MEDS: TOPIRAMATE 25 MG TABLET PO SCH (08:21)
[2020-06-13] MEDS ORDERED: REGADENOSON 0.4 MG/5 ML SYRINGE ONE (08:39)
[2020-06-13] MEDS ORDERED: LISINOPRIL 5 MG TABLET PO SCH (09:00)
[2020-06-13] MEDS ORDERED: AMINOPHYLLINE 25 MG/ML, 10ML ONE (09:41)
[2020-06-13 13:45] VITALS: BP 120/67
[2020-06-13] MEDS ORDERED: NITR0.4T28 SL (16:55)
[2020-06-13] MEDS ORDERED: ISOS30TA8 PO (16:55)
[2020-06-13] MEDS ORDERED: RIVAROXABAN 15 MG TABLET PO SCH (17:00)
[2020-06-13] MEDS ORDERED: RIVAROXABAN 20 MG TABLET PO SCH (17:00)
== END 2020-06-13 19:02 | disposition home or self-care (01) ==
LOC: ED 19:40 → INTOOBSV 21:34 → EDIP 21:34 → 5SO 22:28
PROVIDERS: ADMIT Family Medicine; ATTEND Family Medicine
DX: I25.110 Atherosclerotic heart disease of native coronary artery with unstable angina pectoris (principal); I11.9 Hypertensive heart disease without heart failure; I48.0 Paroxysmal atrial fibrillation; D68.69 Other thrombophilia; E78.5 Hyperlipidemia, unspecified; F41.8 Other specified anxiety disorders; K21.9 Gastro-esophageal reflux disease without esophagitis; E66.9 Obesity, unspecified; I25.2 Old myocardial infarction; Z88.0 Allergy status to penicillin; Z90.710 Acquired absence of both cervix and uterus; Z86.73 Personal history of transient ischemic attack (TIA), and cerebral infarction without residual deficits; Z79.899 Other long term (current) drug therapy; Z95.5 Presence of coronary angioplasty implant and graft
CPT/HCPCS: 36415; 71045; 78452; 80048; 80053; 83690; 83735; 83880; 84100; 84443; 84484; 85025; 93005; 93017; 93306; 99285; A9502; G0378; J2785; J0280